=== PATIENT | female | born 1995 | race African-American/Black ===

== ENCOUNTER 2019-11-27 17:38 | Emergency (ER) | payer BC ==
[~2019-11-27] VITALS: Ht 162.6 cm; Wt 71.0 kg
[2019-11-27 17:59] VITALS: BP 127/64
[2019-11-27 18:37] LABS: BASOPHILS % 0.3 % (0.0-2.0); EOSINOPHILS % 0.5 % (0.0-5.0); HEMOGLOBIN. 11.8 g/dL (12.0-16.0); MEAN CORPUSCULAR VOLUME 94.9 fL (81.0-99.0); MONOCYTES % 10.1 % (2.0-8.0); NEUTROPHILS % 74.1 % (40.0-76.0); PLATELET 267 x1000/uL (130-400); RED BLOOD CELL COUNT 3.59 mill/uL (4.2-5.4); RED CELL DISTRIBUTION WIDTH 13.4 % (11.6-14.6)
[2019-11-27 18:43] LABS: CHLORIDE 108 mEq/L (98-107)
== END 2019-11-27 20:40 | disposition home or self-care (01) ==
LOC: ER 17:38
DX: O26.893 Other specified pregnancy related conditions, third trimester (principal); R55 Syncope and collapse; R06.00 Dyspnea, unspecified; Z3A.35 35 weeks gestation of pregnancy
CPT/HCPCS: 36415; 80053; 83880; 84484; 85025; 93005; 99284

== ENCOUNTER 2023-09-11 18:42 | Emergency (ER) | payer BC, MEDICAID ==
[~2023-09-11] VITALS: Ht 165.1 cm; Wt 67.0 kg
[2023-09-11 18:45] VITALS: O2SAT 100
[2023-09-11] MEDS: KETOROLAC 30MG/ML VIAL IM ONE (22:30)
[2023-09-11] MEDS: ACETAMINOPHEN 325MG TABLET PO ONE (22:30)
[2023-09-11] MEDS: AMOXICILLIN 500 MG CAPSULE PO ONE (22:30)
[2023-09-11] MEDS ORDERED: IBUP-2029 MT (23:13)
[2023-09-11] MEDS ORDERED: AMOX-494 MT (23:13)
[2023-09-11 23:22] VITALS: BP 117/64; PULSE 97; RESP 17; TEMP 98.9
== END 2023-09-11 23:24 | disposition home or self-care (01) ==
LOC: ER 18:42
DX: J02.9 Acute pharyngitis, unspecified (principal)
CPT/HCPCS: 99283; 87430; 96372; J1885